=== PATIENT | male | born 1980 | race American Indian/Alaskan Native ===

== ENCOUNTER 2020-04-23 11:11 | Day surgery (SDC) | payer BC ==
[~2020-04-23 11:11] MED LIST: SODIUM CHLORIDE 0.9% 1000 ML 1,000 ML IV SCH
[2020-04-23] MEDS ORDERED: propofoL 200 MG/20 ML VIAL IV ONE ×2 (13:05→13:10)
--- NOTE | 2020-04-23 13:24 | Procedure Note ---
Date of procedure: 04/23/20 Pre-op diagnosis: GERD and Epigastric Pain Post-op diagnosis: other (Moderate,Erosive Esophagitis/ Gastritis/ R/O Celiac disease/ No Peptic Ulcer disease was noted) Procedure: EGD with Biopsy Anesthesia: MAC Surgeon: OTILIA JIANG Estimated blood loss: minimal Pathology: list Specimen disposition: to lab Condition: stable Disposition: same day (Treat with PPI and Baclofen. Advice patient to avoid alcohol; avoid aspirin and NSAID for 5 days, otherwise resume home medication and follow upin 1 to 2 weeks ([phone]).)
[2020-04-23 13:33] VITALS: BP 142/89
--- NOTE | 2020-04-23 13:37 | Operative Report ---
PROCEDURE: Esophagogastroduodenoscopy with biopsy. INDICATIONS: This is a 40-year-old white male in otherwise good health, who denies history of smoking, but admits to drinking alcohol, has been having severe GERD symptoms in spite of being on treatment. He also gives a family history of cancer, the patient's father had leukemia. EGD was done to make sure there was not any significant upper GI pathology present. DESCRIPTION OF PROCEDURE: The procedure was done after getting informed consent with MAC anesthesia. Instrument was passed through the hypopharynx into the esophagus, which showed moderate erosive esophagitis. Biopsy was done from the distal as well as the mid esophagus to assess for the severity of the erosive esophagitis and to assess for any associated eosinophilic esophagitis. The stomach showed gastritis. No ulcers were noted in the straight or the retroverted view. Pylorus was patent. Duodenum in the first and the second portion appeared normal. Biopsy was done from the second part of the duodenum to rule out for possible celiac disease. Additional biopsy was done from the gastric antrum, gastric body and angular incisura to rule out for H. pylori and atrophic gastritis. There was minimal bleeding associated with the procedure. No complications associated with the procedure. ASSESSMENT: Moderate erosive esophagitis; gastritis, rule out celiac disease. No peptic ulcer disease noted. Patent pylorus. PLAN: Treat the patient with PPI and also to have the patient take baclofen at bedtime. In addition, advised the patient to avoid drinking alcohol for now, to avoid aspirin and aspirin-related products for the next 5 days and follow up in the office in 1-2 weeks' time. The procedure was done in the GI lab with assistance of the GI lab team, which included maria ines Carbajal and with the assistance of anesthesia. JOB# [id number] KATELYN/ART
--- NOTE | 2020-04-23 14:15 | Anesthesia Day of Surgery ---
Anesthesia Day of Surgery - Day of Surgery Patient Examined: Yes Patient H&P Reviewed: Yes Patient is NPO: Yes
--- NOTE | 2020-04-23 14:15 | Post Anesthesia Evaluation ---
- Post Anesthesia Evaluation Patient Participated: Yes Airway Patent: Yes Stable Respiratory Function: Yes Nausea/Vomiting: No Temp > 96.8F: Yes Pain Manageable: Yes Adequeate Hydration: Yes Anesthesia Complications: No
--- NOTE | 2020-04-23 14:15 | Anesthesia Consultation ---
Anesthesia Consult and Med Hx Date of service: 04/23/20 - Airway Anesthetic Teeth Evaluation: Good ROM Head & Neck: Adequate Mental/Hyoid Distance: Adequate Mallampati Class: Class II Intubation Access Assessment: Probably Good - Pulmonary Exam CTA: Yes - Cardiac Exam Cardiac Exam: RRR - Pre-Operative Health Status ASA Pre-Surgery Classification: ASA2 Proposed Anesthetic Plan: MAC - Pulmonary Hx Respiratory Symptoms: No - Cardiovascular System Hx Hypertension: Yes - Central Nervous System CVA: No - Endocrine Hx Renal Disease: No Hx Liver Disease: No Hx Insulin Dependent Diabetes: No Hx Non-Insulin Dependent Diabetes: No Hx Thyroid Disease: No
== END 2020-04-23 11:12 | disposition home or self-care (01) ==
LOC: GIO 11:11
DX: K21.00 Gastro-esophageal reflux disease with esophagitis, without bleeding (principal); K31.89 Other diseases of stomach and duodenum; K29.70 Gastritis, unspecified, without bleeding; E78.00 Pure hypercholesterolemia, unspecified; I10 Essential (primary) hypertension; Z80.0 Family history of malignant neoplasm of digestive organs; Z79.899 Other long term (current) drug therapy
CPT/HCPCS: 43239; 88305; 88342; J2704; J7030